=== PATIENT | male | born 1945 | race Asian ===

== ENCOUNTER 2022-03-22 06:53 | Day surgery (SDC) | payer MEDICARE, OTHER ==
[2022-03-21 10:22] LABS: COVID AG,FIA SOURCE NASOPHARYNGEAL
[~2022-03-22] VITALS: Ht 170.2 cm; Wt 68.2 kg
[~2022-03-22 06:53] MED LIST: KETOROLAC TROMETHAMINE 0.5% 5 ML OPHTHALMIC SOLUTION ONE; MOXIFLOXACIN HCL 0.5% 3 ML OPHTHALMIC SOLUTION ONE; PHENYLEPHRINE HCL 2.5% 2 ML OPHTHALMIC SOLUTION ONE; RINGERS SOLUTION,LACTATED 500 ML IV ONE; TROPICAMIDE 1% 2 ML OPHTHALMIC SOLUTION ONE
[2022-03-22] MEDS ORDERED: BALANCED SALT 15 ML OPHTHALMIC IRRIG.SOLN OD ONE (06:54)
[2022-03-22] MEDS ORDERED: FentaNYL CITRATE PF 100 MCG/2 ML VIAL IVP ONE (06:54)
[2022-03-22] MEDS ORDERED: TETRACAINE HCL/PF 0.5% 4 ML OPHTHALMIC SOLUTION OD ONE (06:54)
[2022-03-22] MEDS ORDERED: EPINEPHrine 1:1,000 [1 MG/ML] VIAL IM ONE (06:54)
[2022-03-22] MEDS ORDERED: CHONDR SULF A SOD/HYALURONATE 1.05 ML KIT IO ONE (06:54)
[2022-03-22] MEDS ORDERED: MIDAZOLAM HCL 2 MG/2 ML VIAL IVP ONE (06:54)
[2022-03-22] MEDS ORDERED: LIDOCAINE/PF 1% 2 ML VIAL IM ONE (06:54)
[2022-03-22] MEDS ORDERED: RINGERS SOLUTION,LACTATED 500 ML IV ONE (07:00)
[2022-03-22] MEDS ORDERED: LOVA40TA2 PO (07:16)
[2022-03-22] MEDS ORDERED: FLUT1BLS3 IH (07:16)
[2022-03-22] MEDS ORDERED: AMLO5TAB66 PO (07:16)
[2022-03-22] MEDS ORDERED: ASPI-1450 PO (07:16)
[2022-03-22] MEDS ORDERED: LOSA100T58 PO (07:16)
[2022-03-22] MEDS ORDERED: MONT-35 PO (07:16)
[2022-03-22] MEDS: MOXIFLOXACIN HCL 0.5% 3 ML OPHTHALMIC SOLUTION OD SCH ×3 (07:32→07:45)
[2022-03-22] MEDS: TROPICAMIDE 1% 2 ML OPHTHALMIC SOLUTION OD SCH ×3 (07:32→07:45)
[2022-03-22] MEDS: PHENYLEPHRINE HCL 2.5% 2 ML OPHTHALMIC SOLUTION OD SCH ×2 (07:32→07:39)
[2022-03-22] MEDS: KETOROLAC TROMETHAMINE 0.5% 5 ML OPHTHALMIC SOLUTION OD SCH ×3 (07:32→07:45)
== END 2022-03-22 09:40 | disposition home or self-care (01) ==
LOC: SURGERY 06:53
PROVIDERS: ATTEND Ophthalmology
DX: H25.11 Age-related nuclear cataract, right eye (principal); H40.10X2 Unspecified open-angle glaucoma, moderate stage; M19.90 Unspecified osteoarthritis, unspecified site; J44.9 Chronic obstructive pulmonary disease, unspecified; I10 Essential (primary) hypertension; Z79.899 Other long term (current) drug therapy; Z87.891 Personal history of nicotine dependence; Z98.890 Other specified postprocedural states
CPT/HCPCS: 66984; 66174; 87426; 93005; C9803; J0171; J2250; J3010; J3490; J7120; Q9967; V2632